=== PATIENT | female | born 1980 | race Caucasian/White ===

== ENCOUNTER → 2020-12-22 13:20 | Outpatient (CLI) | payer OTHER, SELFPAY | PROVIDERS: PCP Emergency Medicine; Visit Provider Nurse Practitioner | DX: Z20.822 Contact with and (suspected) exposure to COVID-19 (principal) | CPT/HCPCS: C9803; U0003; U0005 ==

== ENCOUNTER → 2021-06-17 12:00 | Outpatient (CLI) | payer OTHER, SELFPAY ==
[2021-06-17 17:34] LABS: Alanine Aminotransferase 21 U/L (12-78); Albumin Level 4.3 g/dl (3.5-5.0); Alkaline Phosphatase 52 U/L (38-126); Aspartate Amino Transferase 81 U/L (14-36); Bilirubin,Total 0.6 mg/dl (0.2-1.3); Blood Urea Nitrogen 13 mg/dl (7-17); Carbon Dioxide 25 mmol/L (22.0-30.0); Chloride 105 mmol/L (98-107); Chol/HDL Ratio 2.8 (1-3.5); Cholesterol 210 mg/dl (140-200); Estimated Glomerular Filt Rate 137 ml/min (>60); GFR (African American) 166 ML/MIN (>60); Globulin 2.2 g/dL (1.3-3.2); Glucose 79 mg/dl (74-100); HDL Cholesterol 75 mg/dl (40-60); Sodium 139 mmol/L (136-145); Total Protein,Serum 6.5 g/dl (6.3-8.2); Triglycerides 88 mg/dl (30-150); VLDL Cholesterol 18 mg/dL (0-40)
[2021-06-17 17:38] LABS: Basophils # 0.1 K/mm3 (0-0.2); Basophils % 1.5 % (0.1-2.0); Eosinophils # 0.2 K/mm3 (0.0-0.4); Eosinophils % 2.4 % (0.1-12.0); Hematocrit 43.7 % (37.0-47.0); Hemoglobin 14.1 g/dL (12.2-16.2); Lymphocytes # 3.2 K/mm3 (0.7-4.5); Lymphocytes % 44.7 % (10-50); Mean Corpuscular HGB Conc 32.3 g/dL (31.8-35.4); Mean Corpuscular Hemoglobin 31.8 pg (27.0-31.2); Mean Corpuscular Volume 98.3 fl (81-99); Mean Platelet Volume 9.9 fl (7.4-10.4); Monocytes # 0.5 K/mm3 (0.1-1.0); Monocytes % 6.5 % (1.7-9.3); Neutrophils # 3.3 K/mm3 (1.8-7.8); Neutrophils % 45.1 % (37.0-80.0); Platelet Count 271 K/mm3 (142-424); Red Blood Count 4.44 M/mm3 (4.20-5.40); Red Cell Distribution Width 13.3 % (11.5-17.5); White Blood Count 7.2 K/mm3 (4.8-10.8)
[2021-06-17 17:44] LABS: Direct LDL Cholesterol 90.89 mg/dL (100-129)
[2021-06-17 17:50] LABS: 25-OH Vitamin D, Total 45.8 ng/mL (30-100)
[2021-06-17 17:51] LABS: T4 (Thyroxine) 8.8 ug/dl (5.53-11.0)
[2021-06-17 18:04] LABS: Thyroid Stimulating Hormone 2.04 uIU/mL (0.465-4.68)
== END ==
PROVIDERS: PCP Nurse Practitioner Family; Visit Provider Nurse Practitioner Family
DX: Z00.00 Encounter for general adult medical examination without abnormal findings (principal); R63.4 Abnormal weight loss; Z68.1 Body mass index [BMI] 19.9 or less, adult; Z79.899 Other long term (current) drug therapy
CPT/HCPCS: 80053; 80061; 82306; 84436; 84443; 85025

== ENCOUNTER → 2021-11-28 12:25 | Outpatient (CLI) | payer OTHER, SELFPAY ==
--- NOTE | 2021-11-28 12:31 | XR_ITS ---
FINAL REPORT CLINICAL HISTORY: Bilat knee pain FINDINGS: LEFT KNEE SERIES 4 views of the left knee were obtained. There is no acute fracture or dislocation.Visualized joint spaces are normally aligned. Soft tissues are unremarkable. IMPRESSION: No acute bony abnormality. Reviewed, Interpreted and Dictated by Willie Aranda III, MD Transcribed by Darius Steen Authenticated and . [facility]
--- NOTE | 2021-11-28 12:31 | XR_ITS ---
FINAL REPORT CLINICAL HISTORY: Bilat Knee Pain FINDINGS: 4 views of the right knee were obtained. There is no acute fracture or dislocation. The joint spaces are intact. The soft tissues are unremarkable. IMPRESSION: No acute process. Reviewed, Interpreted and Dictated by Willie Aranda III, MD Transcribed by Darius Steen Authenticated and [facility]
== END ==
PROVIDERS: PCP Nurse Practitioner Family; Visit Provider Nurse Practitioner Family
DX: M25.561 Pain in right knee (principal); M25.562 Pain in left knee
CPT/HCPCS: 73564

== ENCOUNTER 2022-01-11 14:00 | Outpatient (RCR) | payer OTHER, SELFPAY ==
--- NOTE | 2021-11-28 11:53 | HMH.PTOPEV ---
PT Outpatient Evaluation Rehab PT Outpatient Evaluation Start: 11/28/21 11:03 Freq: Status: Active Protocol: Document 11/28/21 11:03 [email or web address] (Rec: 11/28/21 11:52 NESSA [id number]) E-signed By Nna Quezada, PT Outpatient Therapy Subjective History Subjective History Pt is a 41 y/o female that reports insidious onset of left knee pain 3 years ago. Pt reports recent worsening of L knee pain and onset of R knee pain ~2 months ago. Pt reports pain in the past would only last a couple days but she has had consistent pain for the last 2 months. Pt reports she started doing yoga , HIIT, and BONE classes in June which she continues to particpate in 3-4x/week. Pt denies trauma, falls or paresthesia. Pt reports an achey pain in the front of the knee with intermittent sharp shooting pain along the patellar tendon with certain movements. Pt reports pain is worse with stairs, lunges, and jumping. Pt reports usually pain hurts worse going upstairs but also hurts while going down if she is carrying heavy items. 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 Pt reports she see Dr. Rollins on Sunday of this week and is getting xrays today. Pt reports her knee does pop a lot but is not painful. 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
--- NOTE | 2021-12-26 12:12 | HMH.RHREAS ---
Rehab Reassessment Rehab OP Re-assessment Start: 12/26/21 12:06 Freq: Status: Active Protocol: Document 12/26/21 12:06 [email or web address] (Rec: 12/26/21 12:12 NESSA [id number]) E-signed By Nan Quezada PT Rehab Re-assessment Subjective Subjective Pt reports she feels 80% improved since starting PT. Pt denies pain in the left knee and reports only 2/10 pain in the right knee at worse within the last week. Pt reports she has had no pain since her last visit following implementation of ASTYM to the patellar/quad tendon. Pt reports she was able to work a busy weekend and perform her exercises classes without pain . Objective Objective Notes Knee AROM: WNL L hip strength: 4/5 grossly R hip strength: 4+/5 grossly Assessment Progress Assessment Progressing as Expected Assessment Notes Pt has attended 9 PT visits consisting of aerobic exercise , LE stretching/strengthening, eccentric strengthening, and modalities with good tolerance . Pt demonstrated improved hip strength and overall pain severity since initial evaluation. Pt continues to have minimal intermittent right knee pain with functional activities such as working and exercises classes and would continue to benefit from skilled PT to assist with return to PLOF. Patient goals met ST/4 Goals Not Met LTG Revised Goals n/a Plan Plan Continue initial POC Frequency of Therapy 1-2x/week Duration of therapy 2 weeks Time and Billing Re-Eval Time 8 Re-Eval Billing Units 1 PHYSICIAN CERTIFICATION: I certify the specified therapy services for Caitlin MontenegrorodoAntwon are required, authorized, and reviewed every 30 days.
== END 2022-01-11 14:05 | disposition home or self-care (01) ==
LOC: PT 14:00
PROVIDERS: PCP Nurse Practitioner Family; Visit Provider Nurse Practitioner Family
DX: M25.562 Pain in left knee (principal); M25.561 Pain in right knee
CPT/HCPCS: 97010; 97014; 97035; 97110; 97112; 97116; 97140; 97163; 97164; 97530; G0283

== ENCOUNTER → 2023-01-22 23:25 | Outpatient (CLI) | payer OTHER, SELFPAY ==
[2023-01-22 19:05] LABS: Basophils % 0.7 % (0.1-2.0); Eosinophils % 0.9 % (0.1-12.0); Hematocrit 39.9 % (37.0-47.0); Hemoglobin 13.5 g/dL (12.2-16.2); Lymphocytes # 1.6 K/mm3 (0.7-4.5); Lymphocytes % 39.6 % (10-50); Mean Corpuscular HGB Conc 33.7 g/dL (31.8-35.4); Mean Corpuscular Hemoglobin 30.5 pg (27.0-31.2); Mean Corpuscular Volume 90.5 fl (81-99); Mean Platelet Volume 8.8 fl (7.4-10.4); Monocytes # 0.4 K/mm3 (0.1-1.0); Monocytes % 11.1 % (1.7-9.3); Neutrophils # 1.9 K/mm3 (1.8-7.8); Neutrophils % 47.8 % (37.0-80.0); Platelet Count 194 K/mm3 (142-424); Red Blood Count 4.41 M/mm3 (4.20-5.40); Red Cell Distribution Width 13.2 % (11.5-17.5)
[2023-01-22 19:06] LABS: Alanine Aminotransferase 20 U/L (12-78); Albumin Level 4.2 g/dl (3.5-5.0); Albumin/Globulin Ratio 1.7 (1.1-1.8); Alkaline Phosphatase 57 U/L (38-126); Aspartate Amino Transferase 37 U/L (14-36); Bilirubin,Total 0.3 mg/dl (0.2-1.3); Blood Urea Nitrogen 9 mg/dl (7-17); Carbon Dioxide 25 mmol/L (22.0-30.0); Chloride 105 mmol/L (98-107); Chol/HDL Ratio 2.6 (1-3.5); Cholesterol 164 mg/dl (140-200); Estimated Glomerular Filt Rate 110 ml/min (>60); GFR (African American) 133 ML/MIN (>60); Globulin 2.5 g/dL (1.3-3.2); Glucose 84 mg/dl (74-100); HDL Cholesterol 63 mg/dl (40-60); Sodium 135 mmol/L (136-145); Total Protein,Serum 6.7 g/dl (6.3-8.2); Triglycerides 81 mg/dl (30-150); VLDL Cholesterol 16 mg/dL (0-40)
[2023-01-22 19:17] LABS: Direct LDL Cholesterol 76.34 mg/dL (100-129)
[2023-01-22 19:37] LABS: Thyroid Stimulating Hormone 0.84 uIU/mL (0.465-4.68)
== END ==
PROVIDERS: PCP Nurse Practitioner Family; Visit Provider Family Medicine
DX: J02.9 Acute pharyngitis, unspecified (principal); R05.9 Cough, unspecified; R09.82 Postnasal drip; R50.9 Fever, unspecified; Z79.899 Other long term (current) drug therapy
CPT/HCPCS: 80053; 80061; 84443; 85025

== ENCOUNTER 2023-09-19 11:14 | Outpatient (CLI) | payer OTHER, SELFPAY ==
--- NOTE | 2023-09-19 11:18 | XR_ITS ---
FINAL REPORT CLINICAL HISTORY: bilat foot pain, right foot pain is in the arch of her foot FINDINGS: Right foot Three views were obtained. There is no acute fracture or dislocation. The joint spaces appear normal. No soft tissue abnormality is identified. There is mild hallux valgus deformity. Note is made of pes planus. IMPRESSION: No acute process. Reviewed, Interpreted and Dictated by Willie Aranda III, MD Transcribed by Rosio Noe Authenticated and [facility]
--- NOTE | 2023-09-19 11:18 | XR_ITS ---
FINAL REPORT CLINICAL HISTORY: bilat foot pain, left foot pain is in the toes FINDINGS: Left foot Three views were obtained. There is no acute fracture or dislocation. The joint spaces appear normal. No soft tissue abnormality is identified. There is mild hallux valgus deformity. Note is made of pes planus. IMPRESSION: No acute process. Reviewed, Interpreted and Dictated by Willie Aranda III, MD Transcribed by Rosio oNe Authenticated and [facility]
== END 2023-09-19 23:59 | disposition home or self-care (01) ==
LOC: RAD 11:15
PROVIDERS: PCP Family Medicine; Visit Provider Family Medicine
DX: M79.671 Pain in right foot (principal); M79.672 Pain in left foot
CPT/HCPCS: 73630

== ENCOUNTER 2025-01-14 08:36 | Outpatient (CLI) | payer OTHER, SELFPAY ==
[2025-01-14 21:29] LABS: Hematocrit 38.5 % (37.0-47.0); Hemoglobin 12.8 g/dL (12.2-16.2); Immature Granulocytes % 0.2 %; Mean Corpuscular HGB Conc 33.2 g/dL (31.8-35.4); Mean Corpuscular Hemoglobin 30.6 pg (27.0-31.2); Mean Corpuscular Volume 92.1 fl (81-99); Nucleated Red Blood Cells % 0 %; Platelet Count 250 K/mm3 (142-424); Red Blood Count 4.18 M/mm3 (4.20-5.40); Red Cell Distribution Width-SD 42.5 fL; White Blood Count 5.1 K/mm3 (4.8-10.8)
[2025-01-14 21:55] LABS: Alanine Aminotransferase 16 U/L (12-78); Albumin Level 4.9 g/dl (3.5-5.0); Albumin/Globulin Ratio 2.0 (1.1-1.8); Alkaline Phosphatase 63 U/L (38-126); Anion Gap 10.5 mEq/L (5-15); Aspartate Amino Transferase 29 U/L (14-36); Bilirubin,Total 0.5 mg/dl (0.2-1.3); Blood Urea Nitrogen 10 mg/dl (7-17); Calcium 9.4 mg/dl (8.4-10.2); Carbon Dioxide 24 mmol/L (22.0-30.0); Chloride 101 mmol/L (98-107); Creatinine,Serum 0.70 mg/dl (0.52-1.04); Estimated Glomerular Filt Rate 91 ml/min (>60); GFR (African American) 111 ML/MIN (>60); Globulin 2.4 g/dL (1.3-3.2); Glucose 73 mg/dl (74-100); Potassium 3.5 mmoL/L (3.5-5.1); Sodium 132 mmol/L (136-145); Total Protein,Serum 7.3 g/dl (6.3-8.2)
[2025-01-15 00:13] LABS: Hepatitis C Ab Qual. W/ RFX NEGATIVE (Negative)
[2025-01-16 08:16] LABS: Hepatitis B Surface Antigen Negative (Negative)
== END 2025-01-14 23:59 ==
LOC: LAB.DROPOF 01-16 08:37
PROVIDERS: PCP Family Medicine; Visit Provider Student in an Organized Health Care Education/Training Program
DX: E83.51 Hypocalcemia (principal); D72.819 Decreased white blood cell count, unspecified; R53.83 Other fatigue
CPT/HCPCS: 80053; 85025; 86803; 87389; 87522